=== PATIENT | male | born 1965 | race Caucasian/White ===

== ENCOUNTER 2020-05-27 08:15 | Outpatient (CLI) | payer OTHER, SELFPAY | END 2020-05-27 08:16 | disposition home or self-care (01) | LOC: ANHCOVIDVC 08:16 | PROVIDERS: PCP Emergency Medicine | DX: Z23 Encounter for immunization (principal) | CPT/HCPCS: 0001A; 91300 ==

== ENCOUNTER 2020-06-17 08:11 | Outpatient (CLI) | payer OTHER, SELFPAY | END 2020-06-17 08:12 | disposition home or self-care (01) | LOC: ANHCOVIDVC 08:11 | PROVIDERS: PCP Emergency Medicine | DX: Z23 Encounter for immunization (principal) | CPT/HCPCS: 0002A; 91300 ==

== ENCOUNTER 2021-04-07 00:16 | Day surgery (SDC) | payer OTHER, SELFPAY ==
[2021-03-23 09:34] VITALS: BMI 28.8
--- NOTE | 2021-04-06 15:39 | PM.HPGS ---
History of Present Illness History of Present Illness Consent: Risks, benefits, and alternatives have been discussed and questions answered. Patient agrees to proceed with procedure. Chief complaint: neoplasm screening, hx of colon polyps Narrative: Jake Talbot is a 55 year old male Here for colon cancer screening. He has a history of polyps Review of Systems Review of Systems: All systems reviewed & are unremarkable except as noted in HPI and below PMFSH Past Medical History Medical History BPH (benign prostatic hyperplasia) Family History Family History Mother Hypertension Father Malignant neoplasm of prostate Family history of diabetes mellitus in first degree relative Diabetes mellitus Social History Social History Smoking status: Never smoker Alcohol intake: current Alcohol use details: occasional Substance use: never Substance use type: does not use Living arrangements: with family Spiritual care concerns: No Meds Home Medications and Allergies Home Medications Medication Instructions Recorded Confirmed Type albuterol sulfate 90 mcg/actuation See Rx Instructions .ROUTE 09/01/19 04/07/21 Rx aerosol inhaler .COMPLEX #8.5 gm tamsulosin 0.4 mg capsule See Rx Instructions .ROUTE 08/18/20 04/07/21 Rx .COMPLEX #90 cap finasteride 5 mg tablet 5 mg PO DAILY #90 tablet 02/02/21 04/07/21 Rx Allergies Allergy/AdvReac Type Severity Reaction Status Date / Time No Known Allergies Allergy Verified 04/07/21 06:30 Exam Resp: Auscultation: clear to auscultation bilaterally Cardio: Rate: regular rate Rhythm: regular rhythm GI: GI Palp: Yes Soft to palpation and No Tenderness to palpation present (GI) Assessment and Plan Assessment and plan (1) Colon cancer screening: Code(s): Z12.11 - Encounter for screening for malignant neoplasm of colon Status: Acute Assessment and Plan: Colonoscopy with possible biopsy or polypectomy or cautery or injection of substances.
[2021-04-07 06:32] VITALS: BP 111/76; PULSE 75; RESP 16; TEMP 36.6; O2SAT 98
[2021-04-07] MEDS: LACTATED RINGERS 1,000 ML 150 ML IV CONT (06:39)
--- NOTE | 2021-04-07 07:15 | WPDANESEPPF ---
Anes - Initial Pre Proc Eval Procedure: Operation Date: 04/07/21 07:30 Proposed Procedures p Screening Colonoscopy - Jovanny Reyes MD Date/Time: 04/07/21 07:15 Surgeon: Jovanny Reyes MD Pre Op Diagnosis: neoplasm screening, hx of colon polyps Patient Data Age: 55 Gender: M Height: 1.75 m Weight: 87.5 kg Last Vital Signs Temp 97.9 F 04/07/21 06:32 Pulse 75 04/07/21 06:32 Resp 16 04/07/21 06:32 BP 111/76 04/07/21 06:32 Pulse Ox 98 04/07/21 06:32 Allergies Allergy/AdvReac Type Severity Reaction Status Date / Time No Known Allergies Allergy Verified 04/07/21 06:30 Home Medications Medication Instructions Recorded Confirmed Type albuterol sulfate 90 mcg/actuation See Rx Instructions .ROUTE 09/01/19 04/07/21 Rx aerosol inhaler .COMPLEX #8.5 gm tamsulosin 0.4 mg capsule See Rx Instructions .ROUTE 08/18/20 04/07/21 Rx .COMPLEX #90 cap finasteride 5 mg tablet 5 mg PO DAILY #90 tablet 02/02/21 04/07/21 Rx Patient hx anesthesia problems: none Family hx anesthesia problems: none Results Review: All pre-operative results and documents have been reviewed as part of the pre-operative evaluation. [facility]LY [facility] Past Medical History Medical History BPH (benign prostatic hyperplasia) Family History Family History Mother Hypertension Father Malignant neoplasm of prostate Family history of diabetes mellitus in first degree relative Diabetes mellitus Social History Social History Smoking status: Never smoker Alcohol intake: current Alcohol use details: occasional Substance use: never Substance use type: does not use Living arrangements: with family Spiritual care concerns: No Anes - Eval Final PreProcedure Day of Procedure 04/07/21 07:15 Patient weight: overweight Heart: regular rate and rhythm Lungs: clear to auscultation Airway: Mallampati scale class II Neurological: alert and oriented Last oral intake: >/= 8 hours ASA classification: II Emergent: no Anesthetic plan: proceed Anesthesia type and monitoring: general GIVS and standard monitoring Results Review: All pre-operative results and documents have been reviewed as part of the pre-operative evaluation. Informed Consent: The patient's anesthetic plan and its attendant risks and benefits were discussed with the patient/family/POA. Questions were solicited and answers provided to the satisfaction of the patient/family/POA.
[2021-04-07 07:48] VITALS: BP 107/73; PULSE 82; RESP 22; O2SAT 99
[2021-04-07 07:58] VITALS: BP 105/73; PULSE 78; RESP 13; O2SAT 100
[2021-04-07 08:08] VITALS: BP 133/55; PULSE 80; RESP 19; O2SAT 100
== END 2021-04-07 08:25 | disposition home or self-care (01) ==
PROVIDERS: PCP Emergency Medicine; Visit Provider Internal Medicine Gastroenterology
PROC: 0DJD8ZZ Inspection of Lower Intestinal Tract, Via Natural or Artificial Opening Endoscopic (ICD-10-PCS; CPT 45378; principal; 2021-04-07 07:30)
DX: Z12.11 Encounter for screening for malignant neoplasm of colon (principal); K57.30 Diverticulosis of large intestine without perforation or abscess without bleeding; D12.8 Benign neoplasm of rectum; N40.0 Benign prostatic hyperplasia without lower urinary tract symptoms; Z79.51 Long term (current) use of inhaled steroids
CPT/HCPCS: 45385; 88305; J2704; J7120

== ENCOUNTER 2023-03-13 13:01 | Outpatient (NON) | payer OTHER, SELFPAY | END 2023-03-13 13:02 | disposition home or self-care (01) | LOC: ANHLAB 03-14 13:02 | PROVIDERS: PCP Emergency Medicine; Visit Provider Nurse Practitioner | DX: D22.5 Melanocytic nevi of trunk (principal) | CPT/HCPCS: 88305 ==